=== PATIENT | female | born 1995 | race Caucasian/White ===

== ENCOUNTER 2023-06-30 19:09 | Inpatient (IN) | payer OTHER ==
[~2023-06-30] VITALS: Ht 167.6 cm; Wt 102.1 kg
--- OUTSIDE RECORDS SUMMARY | ~2023-06-30 | XMS | Continuity of Care Document ---
Demographics + + + | Address | [address] | | | [place] [address] | + + + | Preferred Language | Unknown | + + + | Marital Status | | + + + | Taoism Affiliation | Unknown | + + + | Race | White | + + + | Ethnic Group | Unknown | + + + Author + + + | Author | [facility] | + + + | Organization | [facility] | + + + | Address | [address] | | | [place] [address] | + + + | Phone | | + + + Care Team Providers + + + + | Care Tobacco Grader Name | Role | Phone | + + + + Unavailable | Unavailable | + + + + Allergies and Intolerances + + + + + + | date | description | facility | reaction | severity | + + + + + + | (no date) | No Known | [facility] | (no reaction) | (no severity) | | | Allergies | | | | + + + + + + Encounters No information. Functional Status No information. Immunizations No information. Medications No information. Problems + + + + | date | description | facility | + + + + | 2022-11-15 08:46 | [facility] | [facility] | | | NORMAL FIRST PREG, FIRST | | | | TRIMESTER | | + + + + | 2022-11-15 08:46 | LESS THAN 8 WEEKS | [facility] | | | GESTATION OF | | + + + + | 2023-02-21 16:35 | [facility] | [facility] | | | NORMAL FIRST PREG, SECOND | | | | TRIMESTER | | + + + + | 2023-04-14 12:40 | UNSPECIFIED LUMP IN THE | [facility] | | | RIGHT BREAST, LO | | + + + + | 2023-06-23 09:58 | FULL-TERM JAMIE ROM, UNSP | [facility] | | | TIME BETW RUPTURE AND ONSET | | | | LABOR | | + + + + | 2023-06-23 09:58 | 38 WEEKS GESTATION OF | [facility] | | | | | + + + + | 2023-06-26 17:38 | FALSE LABOR AT OR AFTER 37 | [facility] | | | COMPLETED WEEKS OF | | | | GESTATION | | + + + + | 2023-06-26 17:38 | 38 WEEKS GESTATION OF | [facility] | | | | | + + + + Procedures No information. Results/Labs No information. Social History No information. Vital Signs No information."
[2023-07-01 00:27] LABS: HEMATOCRIT 41.9 % (35.0-50.0); HEMOGLOBIN 14.3 g/dL (12.0-18.0); MCH 31.7 (27-36); MCV 93.4 fl (81-99); RBC 4.49 M/ul (4.3-5.7); RDW 13.1 (10.5-15.0)
[2023-07-01 00:30] LABS: AMPHETAMINES, UR NEGATIVE (NEGATIVE); BARBITURATES, UR NEGATIVE (NEGATIVE); BENZODIAZEPINES, UR NEGATIVE (NEGATIVE); BUPRENORPHINE,UR NEGATIVE (NEGATIVE); COCAINE, UR NEGATIVE (NEGATIVE); MARIJUANA (THC), UR NEGATIVE (NEGATIVE); MDMA, UR NEGATIVE (NEGATIVE); METHADONE, UR NEGATIVE (NEGATIVE); METHAMPHETAMINE, UR NEGATIVE (NEGATIVE); OPIATES, UR NEGATIVE (NEGATIVE); OXYCODONE, UR NEGATIVE (NEGATIVE); PHENCYCLIDINE, UR NEGATIVE (NEGATIVE); TRICYCLIC ANTIDEPRESSANT, UR NEGATIVE (NEGATIVE)
[2023-07-01 01:03] LABS: ABO O; ANTIBODY SCREEN NEGATIVE; RH POSITIVE
[2023-07-01 01:09] VITALS: BP 139/71
--- NOTE | 2023-07-01 12:57 | PR ---
[facility] [address] [place], [place] [address] Signed Progress Notes IP Datetime Report Generated by CPN: 07/01/2023 12:57 PROGRESS NOTES: [id number] Impression: Normal Progression of Labor; Reassuring Heart Rate Procedures: Scalp Electrode Plan: Augmentation VITAL SIGNS: [id number] Vital Signs: Reviewed; Within Normal Limits EXAM: [id number] Dilatation: 3.5 Effacement: 80 Station: -2 Contractions: q 4-5 min MEMBRANES: [id number] Comments: Pt seen and examined. Doing well. Slow cervical change and rare contractions. Discussed IUPC and pitocin augmentation. On exam, unable to easily place IUPC. Attempted to enlarge amniotomy w/ amnio hook but unable to easily complete. Decision made to place FSE and proceed with external monitoring for augmentation. Pt understands and agrees. Will continue to monitor FETUS A: [id number] FHR Baseline: 135 Variability: Moderate 6-25bpm Accelerations: 15X15 Decelerations: None FHR Category: Category I Presentation: Vertex Comments on Fetus A: No evidence of metabolic acidosis FETUS B: [id number] Signing Physician: Bijan Biswas DO Copies: ~ *Electronically Signed* 07/01/23 BIJAN LORA (FRANCISCO) DO PATIENT NAME: RHETT BISWASNAVARRO CLAUDIO PROGRESS NOTE DATE OF : 89 PHYSICIAN: BIJAN BISWAS (JD) DO RPT #: [id number] REPORT IS CONFIDENTIAL AND NOT TO BE RELEASED WITHOUT AUTHORIZATION
--- NOTE | 2023-07-01 16:16 | PR ---
[facility] [address] [facility] [place], [place] [address] Signed Progress Notes IP Datetime Report Generated by CPN: 07/01/2023 16:16 PROGRESS NOTES: [id number] Impression: Normal Progression of Labor; Reassuring Heart Rate Procedures: Sterile Vag Exam Plan: Continue Present Management; Anticipate Vaginal Delivery Informed Consent Obtain: Vaginal Delivery VITAL SIGNS: [id number] Vital Signs: Reviewed; Within Normal Limits EXAM: [id number] Dilatation: 9.5 Effacement: 100 Station: -1 Contractions: q 4-5 min MEMBRANES: [id number] Comments: Pt seen and examined. Doing well. Some increased discomfort on LEFT side. Reviewed cervical dilation and anticipation of soon. All questions answered. FETUS A: [id number] FHR Baseline: 135 Variability: Moderate 6-25bpm Accelerations: 15X15 Decelerations: None FHR Category: Category I Presentation: Vertex Comments on Fetus A: No evidence of metabolic acidosis FETUS B: [id number] Signing Physician: Bijan Biswas DO Copies: ~ *Electronically Signed* 07/01/23 9133 BIJAN BISWAS (FRANCISCO) DO PATIENT NAME: JASMIN BISWAS PROGRESS NOTE DATE OF : 96 PHYSICIAN: BIJAN BISWAS) DO RPT #: [id number] REPORT IS CONFIDENTIAL AND NOT TO BE RELEASED WITHOUT AUTHORIZATION
--- NOTE | 2023-07-01 18:48 | PR ---
[facility] [address] [place], [place] [address] Signed PP Progress Notes Datetime Report Generated by CPN: 07/01/2023 18:48 SUBJECTIVE: [id number] Vital Signs: [id number] IMPRESSION/PLAN/PROCEDURES: [id number] Progress Notes: Called back to pt room to evaluated small trickle of blood. Uterus firms nicely w/ massage. Pt received pitocin per protocol and uterine cavity was palpated immediately after delivery w/ no obvious retained products of conception. Laceration hemostatic. Pt received 1000mcg cytotec and pitocin drip continued. Reevaluation in 20 minutes demonstrated another small gush of blood _ 50cc (weighted pads pending) for a cumulative EBL of _400cc. Will administer tranexamic acid 1 g IV now. No contraindication to methergine or hemabate. Will continue to monitor. Signing Physician: Bijan Biswas DO Copies: ~ *Electronically Signed* 07/01/23 9402 BIJAN BISWAS (FRANCISCO) DO PATIENT NAME: JASMIN BISWAS PROGRESS NOTE DATE OF : 96 PHYSICIAN: BIJAN BISWAS (FRANCISCO) DO RPT #: [id number] REPORT IS CONFIDENTIAL AND NOT TO BE RELEASED WITHOUT AUTHORIZATION
[2023-07-02 05:15] LABS: HEMATOCRIT 36.5 % (35.0-50.0); HEMOGLOBIN 12.2 g/dL (12.0-18.0); MCH 31.8 (27-36); MCHC 33.5 g/dl (30-36); RBC 3.85 M/ul (4.3-5.7)
--- NOTE | 2023-07-02 08:44 | PR ---
[facility] [address] [facility] [place], [place] [address] Signed PP Progress Notes Datetime Report Generated by CPN: 07/02/2023 08:44 SUBJECTIVE: [id number] Pain: Within Normal Limits Nausea/Vomiting: Denies Flatus: Yes Bowel Movement: No Vital Signs: [id number] Vital Signs: Reviewed; Within Normal Limits Cardiovascular: Normal Respiratory: Normal Abdomen/Uterus: Normal Lochia: Normal Vulva/Perineum: Not Done Breasts: Not Done CVA Tenderness: Normal Extremities: Normal Incision: Not Applicable Progress: Normal Exam Comments: Fundus firm U-2 nontender IMPRESSION/PLAN/PROCEDURES: [id number] Impression: Normal Progression Plan: Continue Present Management Progress Notes: Pt seen and examined. Doing well. Ambulating, voiding, and tolerating full diet. Pain and lochia minimal. well. No fevers/chills or other concerns. Anticipate d/c home tomorrow. Signing Physician: Bijan Biswas DO Copies: ~ *Electronically Signed* 07/02/23 0844 BIJAN BISWAS (FRANCISCO) DO PATIENT NAME: JASMIN BISWAS PROGRESS NOTE DATE OF : 96 PHYSICIAN: BIJAN BISWAS (FRANCISCO) DO RPT #: [id number] REPORT IS CONFIDENTIAL AND NOT TO BE RELEASED WITHOUT AUTHORIZATION
--- NOTE | 2023-07-03 08:42 | PR ---
[facility] [address] [facility] [place], [place] [address] Signed PP Progress Notes Datetime Report Generated by CPN: 07/03/2023 08:42 SUBJECTIVE: [id number] Pain: Within Normal Limits Nausea/Vomiting: Denies Flatus: Yes Bowel Movement: Yes Vital Signs: [id number] Vital Signs: Reviewed; Within Normal Limits Cardiovascular: Normal Respiratory: Normal Abdomen/Uterus: Normal Lochia: Normal Vulva/Perineum: Not Done Breasts: Not Done CVA Tenderness: Normal Extremities: Normal Incision: Not Applicable Progress: Normal Exam Comments: Fundus firm U-2 nontender IMPRESSION/PLAN/PROCEDURES: [id number] Impression: Normal Progression Plan: Discharge Progress Notes: Pt seen and examined. Doing well. Ambulating, voiding, and tolerating full diet. Pain and lochia minimal. well. No fevers/chils or other concerns. Desires d/c home. Reviewed d/c instruction and education in detail. Anticipates natural family planning / condoms for contraception. All questions answered. Signing Physician: Bijan Biswas DO Copies: ~ *Electronically Signed* 07/03/23 0842 BIJAN BISWAS (FRANCISCO) DO PATIENT NAME: JASMIN BISWAS PROGRESS NOTE DATE OF : 96 PHYSICIAN: BIJAN BISWAS (JD) DO RPT #: [id number] REPORT IS CONFIDENTIAL AND NOT TO BE RELEASED WITHOUT AUTHORIZATION
== END 2023-07-03 16:57 | disposition home or self-care (01) | DRG 807 ==
LOC: FBC
PROVIDERS: ADMIT Obstetrics & Gynecology; ATTEND Obstetrics & Gynecology
PROC: 10E0XZZ Delivery of Products of Conception, External Approach (ICD-10-PCS; principal; 2023-07-01)
PROC: 10907ZC Drainage of Amniotic Fluid, Therapeutic from Products of Conception, Via Natural or Artificial Opening (ICD-10-PCS; 2023-07-01)
PROC: 3E0R3BZ Introduction of Anesthetic Agent into Spinal Canal, Percutaneous Approach (ICD-10-PCS; 2023-07-01)
PROC: 00HU33Z Insertion of Infusion Device into Spinal Canal, Percutaneous Approach (ICD-10-PCS; 2023-07-01)
PROC: 0UQMXZZ Repair Vulva, External Approach (ICD-10-PCS; 2023-07-01)
DX: O99.824 Streptococcus B carrier state complicating childbirth (principal); Z37.0 Single live birth; O99.344 Other mental disorders complicating childbirth; F41.9 Anxiety disorder, unspecified; O76 Abnormality in fetal heart rate and rhythm complicating labor and delivery; O71.82 Other specified trauma to perineum and vulva; Z3A.39 39 weeks gestation of pregnancy
CPT/HCPCS: 01960; 36415; 85027; 86850; 86900; 86901; A9270; J2405; J2540; J2590; J2795; J7121